=== PATIENT | female | born 1995 | race Two or more races ===

== ENCOUNTER → 2024-06-08 | Outpatient (CLI) | payer MEDICAID, SELFPAY ==
[2024-06-08 13:33] LABS: Vitamin B12 543 pg/mL (211-911); Vitamin D,25 Hydroxy 26.9 ng/mL
[2024-06-08 13:42] LABS: Estradiol 69.8 pg/mL; Ferritin 8 ng/mL (8-252); Free T3 2.5 pg/mL (2.18-3.98); Iron 55 ug/dL (50-170); Lipase 40 U/L (13-75); T4 Free Direct 0.84 ng/dL (0.76-1.46)
[2024-06-10 08:12] LABS: PROGESTERONE 10.7 ng/mL (.)
[2024-06-14 06:09] LABS: G6PD Quant Test 293 (127-427); Red Blood Cell Count Test/G6PD 4.85 x10E6/uL (3.77-5.28)
== END | disposition home or self-care (01) ==
PROVIDERS: Referring Provider Nurse Practitioner Family; Visit Provider Nurse Practitioner Family
DX: A44.0 Systemic bartonellosis (principal); A69.20 Lyme disease, unspecified; A49.3 Mycoplasma infection, unspecified site; R00.2 Palpitations; R06.00 Dyspnea, unspecified; G43.109 Migraine with aura, not intractable, without status migrainosus; F41.9 Anxiety disorder, unspecified; R00.0 Tachycardia, unspecified; R53.82 Chronic fatigue, unspecified; R10.13 Epigastric pain
CPT/HCPCS: 82306; 82607; 82627; 82670; 82728; 82746; 82955; 83540; 83690; 84144; 84403; 84439; 84443; 84481; 82626

== ENCOUNTER → 2025-03-10 | Outpatient (CLI) | payer MEDICAID, SELFPAY ==
[2025-03-10 14:40] LABS: Absolute Lymphocyte Count 1.98 X10^3/uL (0.83-4.51); Basophil# 0.14 X10^3/uL; Basophil% 2.3 % (0-1); Eosinophil# 0.43 X10^3/uL; Eosinophils% 7.1 % (0-5); Hematocrit 40.8 % (37-47); Hemoglobin 13.1 g/dL (12.0-15.0); Lymphocyte # 1.98 X10^3/ul (0.83-4.51); Lymphocyte % 32.9 % (19-41); Mean Corp Hgb Conc 32.1 g/dL (32-36); Mean Corpuscular Hgb 29.2 pg (27.0-32.0); Mean Corpuscular Volume 91.1 fL (81-99); Mean Platelet Vol. 11.1 fl (6.2-12.0); Monocyte# 0.48 X10^3/uL; NRBC Flagged by Analyzer 0 % (0-5); Neutrophil # 2.97 X10^3/uL (2.7-7.7); Neutrophil % 49.4 % (47-70); Platelet Count 284 K/mm3 (150-450); RBC Distribution Width CV 13.1 % (11.6-14.6); RBC Distribution Width SD 43.3 fl (35.1-43.9); Red Blood Count 4.48 M/mm3 (4.2-5.4)
[2025-03-10 15:12] LABS: ALB/GLOB Ratio 1.8 RATIO (0.9-2.4); AST(SGOT) 33 U/L (<=31); Alanine Aminotransfer ALT/SGPT 26 U/L (<=34); Albumin, Serum 4.5 g/dL (3.5-5.0); Alkaline Phosphatase 63 U/L (35-104); Anion Gap 9 (5-15); BUN 14 mg/dL (4-19); Calcium,Total 9.7 mg/dL (7.6-11.0); Carbon Dioxide 27.5 mmol/L (21.0-32.0); Chloride 102 mmol/L (98-108); Creatinine, Serum 0.93 mg/dL (0.70-1.20); EST Glomerular Filtration Rate 84 (>60); Globulin 2.5 g/dL (2.2-4.2); Glucose 87 mg/dL (70-99); Sodium Level 139 mmol/L (133-145); Total Bilirubin 0.22 mg/dL (0.00-1.30)
[2025-03-15 13:08] LABS: PARVOVIRUS B19 IGG 4.4 index (0.0-0.8); PARVOVIRUS B19 IGM 16.6 index (0.0-0.8)
== END | disposition home or self-care (01) ==
LOC: LABSPEC 12:43
PROVIDERS: Referring Provider Nurse Practitioner Family; Visit Provider Nurse Practitioner Family
DX: A44.0 Systemic bartonellosis (principal); A69.20 Lyme disease, unspecified; A49.3 Mycoplasma infection, unspecified site; R00.2 Palpitations; R06.00 Dyspnea, unspecified; G43.109 Migraine with aura, not intractable, without status migrainosus; F41.9 Anxiety disorder, unspecified; R00.0 Tachycardia, unspecified; N39.0 Urinary tract infection, site not specified
CPT/HCPCS: 80053; 85025; 86747

== ENCOUNTER → 2025-06-05 | Outpatient (CLI) | payer MEDICAID, SELFPAY ==
[2025-06-09 16:09] LABS: EBV Acute VCA IgM < 36.0 U/mL (0.0-35.9); EBV-VCA IgG < 18.0 U/mL (0.0-17.9)
== END | disposition home or self-care (01) ==
LOC: LABSPEC 17:00
DX: A44.0 Systemic bartonellosis (principal); A69.20 Lyme disease, unspecified; A49.3 Mycoplasma infection, unspecified site; R00.2 Palpitations; R06.00 Dyspnea, unspecified; G43.109 Migraine with aura, not intractable, without status migrainosus; F41.9 Anxiety disorder, unspecified; R00.0 Tachycardia, unspecified
CPT/HCPCS: 86617; 86664; 86665